=== PATIENT | male | born 1950 | race Caucasian/White ===

== ENCOUNTER 2017-11-29 09:16 | Emergency (ER) | payer MEDICARE, MEDICAID, OTHER ==
[2017-11-29 12:39] LABS: ADD MAN DIFF? NO
[2017-11-29 12:45] LABS: WHITE BLOOD COUNT 7.9 10^3/ul (4.8-10.8)
[2017-11-29 12:45] LABS: BASOPHILS % 0.5 % (0.0-2.0); EOSINOPHILS # 0.1 10^3/ul (0.0-0.5); EOSINOPHILS % 0.9 % (0.0-7.0); HEMOGLOBIN 12.7 g/dl (14.0-18.0); LYMPHOCYTES # 2.6 10^3/ul (0.8-2.9); LYMPHOCYTES % 32.8 % (15.0-51.0); MEAN CORPUSCULAR HGB CONC 34.3 g/dl (32.0-37.0); MEAN CORPUSCULAR VOLUME 101.9 fl (82.0-101.0); MEAN PLATELET VOLUME 11.9 fl (7.4-10.4); MONOCYTE # 0.7 10^3/ul (0.3-0.9); MONOCYTES % 9.1 % (0.0-11.0); NEUTROPHIL # 4.5 10^3/ul (1.6-7.5); NEUTROPHILS % 56.2 % (39.0-77.0); PLATELET COUNT 217 10^3/UL (140-415); RED BLOOD COUNT 3.63 10^6/ul (4.70-6.10); RED CELL DISTRIBUTION WIDTH 11.6 % (11.5-14.5)
[2017-11-29 13:02] LABS: ADD UMIC YES; UR ASCORBIC ACID NEGATIVE (NEGATIVE); UR BILIRUBIN (Dip) NEGATIVE (NEGATIVE); UR BLOOD (Dip) NEGATIVE (NEGATIVE); UR CLARITY CLEAR (CLEAR); UR COLOR YELLOW (YELLOW); UR GLUCOSE (Dip) 3+ mg/dL (NEGATIVE); UR KETONES (Dip) NEGATIVE (NEGATIVE); UR LEUKOCYTE ESTERASE (Dip) NEGATIVE Leu/ul (NEGATIVE); UR MUCUS FEW /HPF (NONE SEEN); UR NITRITE (Dip) NEGATIVE (NEGATIVE); UR RBC 1 /HPF (0-5); UR SPECIFIC GRAVITY (Dip) 1.029 (1.003-1.030); UR TOTAL PROTEIN (Dip) 1+ mg/dl (NEGATIVE); UR UROBILINOGEN (Dip) 1+ mg/dL (NEGATIVE); UR WBC 1 /HPF (0-5)
[2017-11-29 13:16] LABS: ANION GAP 16 (8-16); BLOOD UREA NITROGEN 12 mg/dl (7-20); CALCIUM 9.5 mg/dl (8.4-10.2); CARBON DIOXIDE 29 mmol/L (21-31); CHLORIDE 100 mmol/L (97-110); CREATININE 0.59 mg/dl (0.61-1.24); GLUCOSE 229 mg/dl (70-220); POTASSIUM 4.6 mmol/L (3.5-5.1); SODIUM 140 mmol/L (135-144)
== END 2017-11-29 15:05 | disposition home or self-care (01) ==
LOC: FTE 09:16
DX: E11.65 Type 2 diabetes mellitus with hyperglycemia (principal); Z95.1 Presence of aortocoronary bypass graft; Z87.891 Personal history of nicotine dependence; Z79.84 Long term (current) use of oral hypoglycemic drugs
CPT/HCPCS: 36415; 70450; 80048; 81001; 82962; 85025; 99284-25

== ENCOUNTER 2018-02-15 20:36 | Emergency (ER) | payer MEDICARE, OTHER, MEDICAID ==
[2018-02-16] MEDS: SOD CHLORIDE 0.9% 1,000 ML IV (00:47)
[2018-02-16 01:16] LABS: ADD MAN DIFF? NO
[2018-02-16 01:21] LABS: BASOPHILS % 0.3 % (0.0-2.0); HEMATOCRIT 42.8 % (42.0-52.0); HEMOGLOBIN 15.6 g/dl (14.0-18.0); MEAN CORPUSCULAR HEMOGLOBIN 34.9 pg (29.0-33.0); MEAN CORPUSCULAR HGB CONC 36.4 g/dl (32.0-37.0); MEAN CORPUSCULAR VOLUME 95.7 fl (82.0-101.0); MEAN PLATELET VOLUME 12.2 fl (7.4-10.4); MONOCYTE # 1.5 10^3/ul (0.3-0.9); MONOCYTES % 13.8 % (0.0-11.0); NEUTROPHIL # 8.3 10^3/ul (1.6-7.5); NEUTROPHILS % 76.4 % (39.0-77.0); PLATELET COUNT 114 10^3/UL (140-415); RED BLOOD COUNT 4.47 10^6/ul (4.70-6.10); RED CELL DISTRIBUTION WIDTH 11.7 % (11.5-14.5)
[2018-02-16 01:21] LABS: WHITE BLOOD COUNT 10.9 10^3/ul (4.8-10.8)
[2018-02-16 01:52] LABS: ALANINE AMINOTRANSFERASE 46 IU/L (13-69); ALBUMIN 4.1 g/dl (3.3-4.9); ALBUMIN/GLOBULIN RATIO 0.95; ALKALINE PHOSPHATASE 104 IU/L (42-121); ANION GAP 23 (8-16); ASPARTATE AMINO TRANSFERASE 65 IU/L (15-46); BILIRUBIN,INDIRECT 0.2 mg/dl (0-1.1); BILIRUBIN,TOTAL 0.2 mg/dl (0.2-1.3); BLOOD UREA NITROGEN 23 mg/dl (7-20); CALCIUM 9.3 mg/dl (8.4-10.2); CARBON DIOXIDE 25 mmol/L (21-31); CHLORIDE 85 mmol/L (97-110); CREATININE 0.79 mg/dl (0.61-1.24); POTASSIUM 4.5 mmol/L (3.5-5.1); SODIUM 128 mmol/L (135-144); TOTAL PROTEIN 8.4 g/dl (6.1-8.1)
[2018-02-16 01:59] LABS: GLUCOSE 481 mg/dl (70-220)
[2018-02-16 02:00] LABS: ADD UMIC YES; UR ASCORBIC ACID NEGATIVE (NEGATIVE); UR BILIRUBIN (Dip) NEGATIVE (NEGATIVE); UR BLOOD (Dip) 1+ mg/dL (NEGATIVE); UR CLARITY CLEAR (CLEAR); UR COLOR YELLOW (YELLOW); UR GLUCOSE (Dip) 3+ mg/dL (NEGATIVE); UR KETONES (Dip) 1+ mg/dL (NEGATIVE); UR LEUKOCYTE ESTERASE (Dip) NEGATIVE Leu/ul (NEGATIVE); UR NITRITE (Dip) NEGATIVE (NEGATIVE); UR RBC 1 /HPF (0-5); UR TOTAL PROTEIN (Dip) 2+ mg/dl (NEGATIVE); UR UROBILINOGEN (Dip) NEGATIVE (NEGATIVE); UR WBC 0 /HPF (0-5)
[2018-02-16 02:02] LABS: TROPONIN-I 0.022 ng/ml (0.00-0.12)
[2018-02-16 03:23] LABS: LACTIC ACID 1.6 mmol/L (0.5-2.0)
[2018-02-16] MEDS: INSULIN LISPRO 100 UNIT/ML VIAL SC (04:39)
== END 2018-02-16 06:34 | disposition home or self-care (01) ==
LOC: E/R 20:36
DX: E11.65 Type 2 diabetes mellitus with hyperglycemia (principal); F10.230 Alcohol dependence with withdrawal, uncomplicated; Z79.4 Long term (current) use of insulin; Z87.891 Personal history of nicotine dependence; Z95.1 Presence of aortocoronary bypass graft
CPT/HCPCS: 36415; 71045; 80053; 81001; 82962; 83605; 84484; 85025; 87040; 93005; 96372; 99285-25

== ENCOUNTER 2018-02-17 14:41 | Inpatient (IN) | payer MEDICARE, OTHER ==
[2018-02-17] MEDS: SODIUM CHLORIDE 0.9% 1L BAG IV* (17:29)
[2018-02-17] MEDS: CEFEPIME 2GM/50 ML (PMX) 50 ML IVPB (17:29)
[2018-02-17 17:33] LABS: ABNORMAL IP MESSAGE 1; HEMOGLOBIN 14.1 g/dl (14.0-18.0); MEAN CORPUSCULAR HEMOGLOBIN 34.6 pg (29.0-33.0); MEAN CORPUSCULAR HGB CONC 35.3 g/dl (32.0-37.0); MEAN PLATELET VOLUME 12.7 fl (7.4-10.4); PLATELET COUNT 132 10^3/UL (140-415); POSITIVE DIFF @See below; RED BLOOD COUNT 4.08 10^6/ul (4.70-6.10); RED CELL DISTRIBUTION WIDTH 11.9 % (11.5-14.5)
[2018-02-17 17:33] LABS: WHITE BLOOD COUNT 10.7 10^3/ul (4.8-10.8)
[2018-02-17 17:34] LABS: ADD MAN DIFF? YES
[2018-02-17 17:53] LABS: PARTIAL THROMBOPLASTIN TIME 27.4 Sec (25.0-35.0); PROTIME 14.4 Sec (11.9-14.9); PT RATIO 1.1
[2018-02-17 17:55] LABS: LACTIC ACID 4.2 mmol/L (0.5-2.0)
[2018-02-17 17:55] LABS: ALANINE AMINOTRANSFERASE 45 IU/L (13-69); ALBUMIN 3.8 g/dl (3.3-4.9); ALBUMIN/GLOBULIN RATIO 0.97; ALKALINE PHOSPHATASE 88 IU/L (42-121); ANION GAP 22 (8-16); ASPARTATE AMINO TRANSFERASE 52 IU/L (15-46); BILIRUBIN,INDIRECT 0.4 mg/dl (0-1.1); BILIRUBIN,TOTAL 0.4 mg/dl (0.2-1.3); BLOOD UREA NITROGEN 21 mg/dl (7-20); CALCIUM 9.2 mg/dl (8.4-10.2); CARBON DIOXIDE 25 mmol/L (21-31); CHLORIDE 86 mmol/L (97-110); CREATININE 0.77 mg/dl (0.61-1.24); POTASSIUM 4.3 mmol/L (3.5-5.1); SODIUM 129 mmol/L (135-144); TOTAL PROTEIN 7.7 g/dl (6.1-8.1)
[2018-02-17 18:05] LABS: TROPONIN-I < 0.012 ng/ml (0.00-0.12)
[2018-02-17 18:11] LABS: GLUCOSE 572 mg/dl (70-220)
[2018-02-17 18:24] LABS: ADD UMIC YES; UR ASCORBIC ACID NEGATIVE (NEGATIVE); UR BILIRUBIN (Dip) NEGATIVE (NEGATIVE); UR BLOOD (Dip) 1+ mg/dL (NEGATIVE); UR CLARITY CLEAR (CLEAR); UR COLOR YELLOW (YELLOW); UR GLUCOSE (Dip) 3+ mg/dL (NEGATIVE); UR KETONES (Dip) 1+ mg/dL (NEGATIVE); UR LEUKOCYTE ESTERASE (Dip) NEGATIVE Leu/ul (NEGATIVE); UR NITRITE (Dip) NEGATIVE (NEGATIVE); UR RBC 0 /HPF (0-5); UR TOTAL PROTEIN (Dip) 1+ mg/dl (NEGATIVE); UR UROBILINOGEN (Dip) NEGATIVE (NEGATIVE); UR WBC 0 /HPF (0-5)
[2018-02-17] MEDS: SOD CHLORIDE 0.9% 1,000 ML IV ×3 (18:30→20:49)
[2018-02-17 19:02] LABS: BAND NEUTROPHILS #M 1.6 10^3/ul (0.0-0.6); BAND NEUTROPHILS % (M) 15 % (0-4); GIANT THROMBO% (M) 1 % (0-0); LYMPHOCYTES % (M) 10 % (15-51); MONOCYTE #M 1.4 10^3/ul (0.3-0.9); MONOCYTES % (M) 14 % (0-11); PLATELET ESTIMATE NORMAL; SEG NEUT #M 6.7 10^3/ul (1.6-7.5); SEGMENTED NEUTROPHILS (M) % 61 % (39-77); SMUDGE%M 2 % (0-0)
[2018-02-17 19:36] LABS: LACTIC ACID 1.4 mmol/L (0.5-2.0)
[2018-02-17] MEDS ORDERED: ONDANSETRON 4 MG INJ IV (21:00)
[2018-02-17] MEDS ORDERED: morphine 2 MG INJ IV (21:00)
[2018-02-17] MEDS ORDERED: NACL 0.9% 3 ML SYG IV (21:00)
[2018-02-17] MEDS ORDERED: GLUCOSE GEL 15 GRAM TUBE BUCCAL (21:30)
[2018-02-17] MEDS ORDERED: DEXTROSE 50% 50 ML SYRINGE IV ×2 (21:30)
[2018-02-17] MEDS ORDERED: GLUCAGON 1 MG INJ IM (21:30)
[2018-02-17] MEDS ORDERED: GLUCOSE GEL 15 GRAM TUBE PO ×2 (21:30)
[2018-02-17] MEDS: hydrALAzine 20 MG INJ IV (22:11)
[2018-02-17 22:29] LABS: LACTIC ACID 1.9 mmol/L (0.5-2.0)
[2018-02-17] MEDS: INSULIN ASPART [NOVOLOG] 3 ML PEN SC (22:34)
[2018-02-17] MEDS: ACETAMINOPHEN 325 MG TAB PO (22:37)
[2018-02-18] MEDS: ACCU-CHEK XX (02:00)
[2018-02-18] MEDS: CEFEPIME 2GM/50 ML (PMX) 50 ML IVPB ×4 (02:39→21:20)
[2018-02-18 06:14] LABS: ADD MAN DIFF? NO
[2018-02-18 06:18] LABS: BASOPHILS % 0.2 % (0.0-2.0); EOSINOPHILS % 0.1 % (0.0-7.0); HEMATOCRIT 34.8 % (42.0-52.0); HEMOGLOBIN 12.8 g/dl (14.0-18.0); LYMPHOCYTES # 1.4 10^3/ul (0.8-2.9); LYMPHOCYTES % 13.1 % (15.0-51.0); MEAN CORPUSCULAR HEMOGLOBIN 35.3 pg (29.0-33.0); MEAN CORPUSCULAR HGB CONC 36.8 g/dl (32.0-37.0); MEAN CORPUSCULAR VOLUME 95.9 fl (82.0-101.0); MEAN PLATELET VOLUME 12.9 fl (7.4-10.4); MONOCYTE # 1.5 10^3/ul (0.3-0.9); MONOCYTES % 13.8 % (0.0-11.0); NEUTROPHIL # 7.7 10^3/ul (1.6-7.5); NEUTROPHILS % 72.3 % (39.0-77.0); PLATELET COUNT 126 10^3/UL (140-415); RED BLOOD COUNT 3.63 10^6/ul (4.70-6.10); RED CELL DISTRIBUTION WIDTH 11.7 % (11.5-14.5)
[2018-02-18 06:18] LABS: WHITE BLOOD COUNT 10.7 10^3/ul (4.8-10.8)
[2018-02-18 06:28] LABS: HEMOGLOBIN A1C 10.1 % (0-5.9)
[2018-02-18] MEDS: SOD CHLORIDE 0.9% 1,000 ML IV ×2 (06:49→16:20)
[2018-02-18 06:52] LABS: ALANINE AMINOTRANSFERASE 41 IU/L (13-69); ALBUMIN 2.8 g/dl (3.3-4.9); ALBUMIN/GLOBULIN RATIO 0.82; ALKALINE PHOSPHATASE 68 IU/L (42-121); ANION GAP 15 (8-16); ASPARTATE AMINO TRANSFERASE 45 IU/L (15-46); BILIRUBIN,INDIRECT 0.3 mg/dl (0-1.1); BILIRUBIN,TOTAL 0.3 mg/dl (0.2-1.3); BLOOD UREA NITROGEN 13 mg/dl (7-20); CALCIUM 8.1 mg/dl (8.4-10.2); CARBON DIOXIDE 25 mmol/L (21-31); CHLORIDE 99 mmol/L (97-110); CHOL/HDL RATIO 10.1 RATIO; CHOLESTEROL 152 mg/dl (100-200); CREATININE 0.54 mg/dl (0.61-1.24); GLUCOSE 262 mg/dl (70-220); HDL CHOLESTEROL 15 mg/dl (30-78); LDL CHOLESTEROL,CALCULATED 103 mg/dl; MAGNESIUM 1.5 mg/dl (1.7-2.5); POTASSIUM 3.3 mmol/L (3.5-5.1); SODIUM 136 mmol/L (135-144); TOTAL PROTEIN 6.2 g/dl (6.1-8.1); TRIGLYCERIDES 171 mg/dl (0-149)
[2018-02-18 07:02] LABS: FREE THYROXINE INDEX (Calc) 3.05 ug/ml (0.65-3.89); T3 UPTAKE 53.5 % (23.5-40.5); T4 (THYROXINE) 5.7 ug/dl (5.5-11.0)
[2018-02-18] MEDS: POTASSIUM CHLORIDE (SR) 20 MEQ TAB PO ×2 (07:51→10:39)
[2018-02-18] MEDS: INSULIN ASPART [NOVOLOG] 3 ML PEN SC ×4 (08:27→21:24)
[2018-02-18] MEDS: ACETAMINOPHEN 325 MG TAB PO (08:44)
[2018-02-18 10:10] LABS: ETHANOL < 10.0 mg/dl
[2018-02-18 11:13] LABS: FOLATE 11.6 ng/ml (2.8-20.0)
[2018-02-18] MEDS: MAGNESIUM SULFATE 2 GM/50 ML 50 ML IVPB (11:24)
[2018-02-18] MEDS: INSULIN GLARGINE [LANtus] 3 ML PEN SC (21:23)
[2018-02-19] MEDS ORDERED: ACCU-CHEK XX (02:00)
[2018-02-19] MEDS: ACCU-CHEK XX (02:00)
[2018-02-19] MEDS: INSULIN ASPART [NOVOLOG] 3 ML PEN SC ×5 (03:20→21:09)
[2018-02-19] MEDS: CEFEPIME 2GM/50 ML (PMX) 50 ML IVPB ×2 (03:47→15:39)
[2018-02-19 06:14] LABS: ANION GAP 15 (8-16)
[2018-02-19 06:15] LABS: BLOOD UREA NITROGEN 7 mg/dl (7-20); CALCIUM 8.5 mg/dl (8.4-10.2); CARBON DIOXIDE 28 mmol/L (21-31); CHLORIDE 95 mmol/L (97-110); CREATININE 0.57 mg/dl (0.61-1.24); GLUCOSE 229 mg/dl (70-220); POTASSIUM 3.5 mmol/L (3.5-5.1); SODIUM 134 mmol/L (135-144)
[2018-02-19 06:42] LABS: ADD MAN DIFF? NO
[2018-02-19] MEDS: CEFAZOLIN 1 GM/50 ML (PMX) 50 ML IVPB ×2 (08:26→13:30)
[2018-02-19] MEDS: AMLODIPINE 5 MG TAB PO (08:27)
[2018-02-19 09:55] LABS: HEMATOCRIT 34.9 % (42.0-52.0); HEMOGLOBIN 12.6 g/dl (14.0-18.0); MEAN CORPUSCULAR HEMOGLOBIN 34.4 pg (29.0-33.0); MEAN CORPUSCULAR HGB CONC 36.1 g/dl (32.0-37.0); MEAN CORPUSCULAR VOLUME 95.4 fl (82.0-101.0); RED BLOOD COUNT 3.66 10^6/ul (4.70-6.10); RED CELL DISTRIBUTION WIDTH 11.6 % (11.5-14.5)
[2018-02-19 09:55] LABS: WHITE BLOOD COUNT 10.9 10^3/ul (4.8-10.8)
[2018-02-19 09:56] LABS: MEAN PLATELET VOLUME 12.3 fl (7.4-10.4); PLATELET COUNT 158 10^3/UL (140-415)
[2018-02-19 09:59] LABS: EOSINOPHILS % 0.1 % (0.0-7.0); LYMPHOCYTES % 13.2 % (15.0-51.0); MONOCYTES % 15.5 % (0.0-11.0); NEUTROPHILS % 70.3 % (39.0-77.0)
[2018-02-19 10:00] LABS: BASOPHILS % 0.3 % (0.0-2.0)
[2018-02-19 10:15] LABS: ADD MAN DIFF? NO
[2018-02-19 10:21] LABS: WHITE BLOOD COUNT 11.8 10^3/ul (4.8-10.8)
[2018-02-19 10:21] LABS: ABNORMAL IP MESSAGE 1; BASOPHILS % 0.3 % (0.0-2.0); HEMATOCRIT 35.8 % (42.0-52.0); HEMOGLOBIN 12.7 g/dl (14.0-18.0); LYMPHOCYTES # 0.9 10^3/ul (0.8-2.9); LYMPHOCYTES % 7.7 % (15.0-51.0); MEAN CORPUSCULAR HEMOGLOBIN 34.3 pg (29.0-33.0); MEAN CORPUSCULAR HGB CONC 35.5 g/dl (32.0-37.0); MEAN CORPUSCULAR VOLUME 96.8 fl (82.0-101.0); MEAN PLATELET VOLUME 12.2 fl (7.4-10.4); MONOCYTE # 1.8 10^3/ul (0.3-0.9); NEUTROPHILS % 76.2 % (39.0-77.0); PLATELET COUNT 170 10^3/UL (140-415); POSITIVE DIFF @See below; RED CELL DISTRIBUTION WIDTH 11.8 % (11.5-14.5)
[2018-02-19] MEDS: SOD CHLORIDE 0.9% 1,000 ML IV (10:25)
[2018-02-19] MEDS: ACETAMINOPHEN 325 MG TAB PO (13:30)
[2018-02-19] MEDS: METOPROLOL (XL) 25 MG TAB PO (14:00)
[2018-02-19] MEDS ORDERED: CEFOTAXIME 2 GM/50 ML (PMX) 50 ML IVPB ×2 (18:00)
[2018-02-19] MEDS ORDERED: CEFOTAXIME IVPB (20:00)
[2018-02-19] MEDS ORDERED: DEXTROSE 5% IVPB (20:00)
[2018-02-19] MEDS: CEFOTAXIME IVPB (20:17)
[2018-02-19] MEDS: DEXTROSE 5% IVPB (20:17)
[2018-02-19] MEDS: INSULIN GLARGINE [LANtus] 3 ML PEN SC (20:22)
[2018-02-20] MEDS: ACCU-CHEK XX (02:00)
[2018-02-20] MEDS: SOD CHLORIDE 0.9% 1,000 ML IV ×3 (04:40→11:03)
[2018-02-20 05:34] LABS: ADD MAN DIFF? NO
[2018-02-20] MEDS: CEFOTAXIME IVPB ×3 (05:53→22:00)
[2018-02-20] MEDS: DEXTROSE 5% IVPB ×3 (05:53→22:00)
[2018-02-20 05:55] LABS: INR 1.11; PROTIME 14.5 Sec (11.9-14.9); PT RATIO 1.1
[2018-02-20 06:02] LABS: ANION GAP 14 (8-16); BLOOD UREA NITROGEN 7 mg/dl (7-20); CALCIUM 8.4 mg/dl (8.4-10.2); CARBON DIOXIDE 26 mmol/L (21-31); CHLORIDE 95 mmol/L (97-110); CREATININE 0.46 mg/dl (0.61-1.24); GLUCOSE 212 mg/dl (70-220); POTASSIUM 3.4 mmol/L (3.5-5.1); SODIUM 132 mmol/L (135-144)
[2018-02-20 06:27] LABS: HEPATITIS B SURFACE ANTIGEN NEGATIVE (NEGATIVE)
[2018-02-20 06:44] LABS: ALPHA FETOPROTEIN 1.06 IU/L (0.00-7.21)
[2018-02-20 06:45] LABS: HEPATITIS B CORE ANTIBODY NEGATIVE (NEGATIVE); HEPATITIS C VIRAL ANTIBODY NEGATIVE (NEGATIVE)
[2018-02-20 06:56] LABS: ABNORMAL IP MESSAGE 1; BASOPHILS % 0.4 % (0.0-2.0); EOSINOPHILS % 0.1 % (0.0-7.0); HEMATOCRIT 35.5 % (42.0-52.0); HEMOGLOBIN 12.8 g/dl (14.0-18.0); LYMPHOCYTES # 1.2 10^3/ul (0.8-2.9); LYMPHOCYTES % 10.4 % (15.0-51.0); MEAN CORPUSCULAR HGB CONC 36.1 g/dl (32.0-37.0); MEAN PLATELET VOLUME 12.3 fl (7.4-10.4); MONOCYTE # 1.6 10^3/ul (0.3-0.9); MONOCYTES % 14.5 % (0.0-11.0); NEUTROPHIL # 8.3 10^3/ul (1.6-7.5); NEUTROPHILS % 73.8 % (39.0-77.0); PLATELET COUNT 191 10^3/UL (140-415); POSITIVE DIFF @See below; RED BLOOD COUNT 3.66 10^6/ul (4.70-6.10); RED CELL DISTRIBUTION WIDTH 11.7 % (11.5-14.5)
[2018-02-20 06:56] LABS: WHITE BLOOD COUNT 11.2 10^3/ul (4.8-10.8)
[2018-02-20] MEDS: INSULIN ASPART [NOVOLOG] 3 ML PEN SC ×4 (08:19→21:16)
[2018-02-20] MEDS: LISINOPRIL 5 MG TAB PO (08:40)
[2018-02-20] MEDS: METOPROLOL (XL) 25 MG TAB PO (08:40)
[2018-02-20] MEDS: AMLODIPINE 5 MG TAB PO (08:40)
[2018-02-20] MEDS: ASPIRIN (EC) 81 MG TAB PO (08:40)
[2018-02-20 08:56] LABS: ERYTHROCYTE SEDIMENTATION RATE 96 mm/Hr (0-20)
[2018-02-20 09:00] LABS: HEPATITIS B SURFACE ANTIBODY POSITIVE (NEGATIVE)
[2018-02-20] MEDS: POTASSIUM CHLORIDE (SR) 20 MEQ TAB PO ×2 (11:48→20:50)
[2018-02-20] MEDS: INSULIN GLARGINE [LANtus] 3 ML PEN SC (20:24)
[2018-02-21] MEDS: ACCU-CHEK XX (02:00)
[2018-02-21] MEDS: DEXTROSE 5% IVPB ×3 (05:33→22:39)
[2018-02-21] MEDS: CEFOTAXIME IVPB ×3 (05:33→22:39)
[2018-02-21] MEDS: SOD CHLORIDE 0.9% 1,000 ML IV ×2 (05:38→14:00)
[2018-02-21 06:21] LABS: ADD MAN DIFF? NO
[2018-02-21 06:43] LABS: ABNORMAL IP MESSAGE 1; ANION GAP 13 (8-16); BASOPHIL # 0.1 10^3/ul (0.0-0.1); BASOPHILS % 0.5 % (0.0-2.0); BLOOD UREA NITROGEN 8 mg/dl (7-20); CALCIUM 8.5 mg/dl (8.4-10.2); CARBON DIOXIDE 29 mmol/L (21-31); CHLORIDE 96 mmol/L (97-110); CREATININE 0.58 mg/dl (0.61-1.24); EOSINOPHILS % 0.2 % (0.0-7.0); GLUCOSE 224 mg/dl (70-220); HEMATOCRIT 35.6 % (42.0-52.0); HEMOGLOBIN 12.7 g/dl (14.0-18.0); LYMPHOCYTES # 1.5 10^3/ul (0.8-2.9); LYMPHOCYTES % 14.1 % (15.0-51.0); MEAN CORPUSCULAR HEMOGLOBIN 34.9 pg (29.0-33.0); MEAN CORPUSCULAR HGB CONC 35.7 g/dl (32.0-37.0); MEAN CORPUSCULAR VOLUME 97.8 fl (82.0-101.0); MEAN PLATELET VOLUME 11.7 fl (7.4-10.4); MONOCYTE # 1.7 10^3/ul (0.3-0.9); MONOCYTES % 15.5 % (0.0-11.0); NEUTROPHIL # 7.5 10^3/ul (1.6-7.5); NEUTROPHILS % 68.1 % (39.0-77.0); PLATELET COUNT 232 10^3/UL (140-415); POSITIVE DIFF @See below; POTASSIUM 3.8 mmol/L (3.5-5.1); RED BLOOD COUNT 3.64 10^6/ul (4.70-6.10); RED CELL DISTRIBUTION WIDTH 11.9 % (11.5-14.5); SODIUM 134 mmol/L (135-144)
[2018-02-21] MEDS: INSULIN ASPART [NOVOLOG] 3 ML PEN SC ×5 (07:58→21:21)
[2018-02-21] MEDS: ASPIRIN (EC) 81 MG TAB PO (08:17)
[2018-02-21] MEDS: POTASSIUM CHLORIDE (SR) 20 MEQ TAB PO ×2 (08:17→21:23)
[2018-02-21] MEDS: LISINOPRIL 5 MG TAB PO (08:18)
[2018-02-21] MEDS: METOPROLOL (XL) 25 MG TAB PO (08:18)
[2018-02-21] MEDS: AMLODIPINE 5 MG TAB PO (08:19)
[2018-02-21] MEDS: SOD CHLORIDE 0.9% 100 ML (20:58)
[2018-02-21] MEDS: IODIXANOL LOCM 100 ML BTL (20:59)
[2018-02-21] MEDS: INSULIN GLARGINE [LANtus] 3 ML PEN SC (21:22)
[2018-02-22] MEDS: ACCU-CHEK XX (02:00)
[2018-02-22] MEDS: DEXTROSE 5% IVPB ×3 (05:29→22:44)
[2018-02-22] MEDS: CEFOTAXIME IVPB ×3 (05:29→22:44)
[2018-02-22] MEDS: SOD CHLORIDE 0.9% 1,000 ML IV ×3 (06:00→23:20)
[2018-02-22 06:25] LABS: ADD MAN DIFF? NO
[2018-02-22 06:29] LABS: WHITE BLOOD COUNT 9.1 10^3/ul (4.8-10.8)
[2018-02-22 06:29] LABS: BASOPHILS % 0.4 % (0.0-2.0); EOSINOPHILS # 0.1 10^3/ul (0.0-0.5); EOSINOPHILS % 1.2 % (0.0-7.0); HEMATOCRIT 34.2 % (42.0-52.0); HEMOGLOBIN 12.1 g/dl (14.0-18.0); LYMPHOCYTES # 1.4 10^3/ul (0.8-2.9); LYMPHOCYTES % 15.5 % (15.0-51.0); MEAN CORPUSCULAR HEMOGLOBIN 34.7 pg (29.0-33.0); MEAN CORPUSCULAR HGB CONC 35.4 g/dl (32.0-37.0); MEAN PLATELET VOLUME 11.4 fl (7.4-10.4); MONOCYTE # 1.3 10^3/ul (0.3-0.9); MONOCYTES % 14.8 % (0.0-11.0); NEUTROPHILS % 66.7 % (39.0-77.0); PLATELET COUNT 245 10^3/UL (140-415); RED BLOOD COUNT 3.49 10^6/ul (4.70-6.10); RED CELL DISTRIBUTION WIDTH 12.1 % (11.5-14.5)
[2018-02-22 06:52] LABS: ANION GAP 11 (8-16); BLOOD UREA NITROGEN 7 mg/dl (7-20); CALCIUM 8.2 mg/dl (8.4-10.2); CARBON DIOXIDE 31 mmol/L (21-31); CHLORIDE 97 mmol/L (97-110); CREATININE 0.68 mg/dl (0.61-1.24); GLUCOSE 183 mg/dl (70-220); POTASSIUM 3.9 mmol/L (3.5-5.1); SODIUM 135 mmol/L (135-144)
[2018-02-22] MEDS: INSULIN ASPART [NOVOLOG] 3 ML PEN SC ×7 (08:09→21:00)
[2018-02-22] MEDS: AMLODIPINE 5 MG TAB PO (09:02)
[2018-02-22] MEDS: POTASSIUM CHLORIDE (SR) 20 MEQ TAB PO ×2 (09:02→21:31)
[2018-02-22] MEDS: ASPIRIN (EC) 81 MG TAB PO (09:02)
[2018-02-22] MEDS: METOPROLOL (XL) 25 MG TAB PO (09:03)
[2018-02-22] MEDS: LISINOPRIL 5 MG TAB PO (09:03)
[2018-02-22 13:44] LABS: AMPHETAMINE/METHAMPHETAMINE NEGATIVE (NEGATIVE); BARBITURATES NEGATIVE (NEGATIVE); BENZODIAZEPINES NEGATIVE (NEGATIVE); COCAINE NEGATIVE (NEGATIVE); OPIATES NEGATIVE (NEGATIVE)
[2018-02-22 14:15] LABS: CANNABINOIDS NEGATIVE (NEGATIVE)
[2018-02-22] MEDS: INSULIN GLARGINE [LANtus] 3 ML PEN SC (21:30)
[2018-02-23] MEDS: ACCU-CHEK XX (01:55)
[2018-02-23] MEDS: INSULIN ASPART [NOVOLOG] 3 ML PEN SC ×8 (05:05→21:00)
[2018-02-23] MEDS: SOD CHLORIDE 0.9% 1,000 ML IV (05:32)
[2018-02-23] MEDS: DEXTROSE 5% IVPB ×3 (06:11→23:08)
[2018-02-23] MEDS: CEFOTAXIME IVPB ×3 (06:11→23:08)
[2018-02-23 08:08] LABS: ADD MAN DIFF? NO
[2018-02-23 08:13] LABS: BASOPHILS % 0.5 % (0.0-2.0); EOSINOPHILS # 0.1 10^3/ul (0.0-0.5); EOSINOPHILS % 1.2 % (0.0-7.0); HEMATOCRIT 35.3 % (42.0-52.0); HEMOGLOBIN 12.2 g/dl (14.0-18.0); LYMPHOCYTES # 1.2 10^3/ul (0.8-2.9); LYMPHOCYTES % 14.4 % (15.0-51.0); MEAN CORPUSCULAR HEMOGLOBIN 34.3 pg (29.0-33.0); MEAN CORPUSCULAR HGB CONC 34.6 g/dl (32.0-37.0); MEAN CORPUSCULAR VOLUME 99.2 fl (82.0-101.0); MEAN PLATELET VOLUME 11.8 fl (7.4-10.4); MONOCYTE # 1.1 10^3/ul (0.3-0.9); MONOCYTES % 12.4 % (0.0-11.0); PLATELET COUNT 272 10^3/UL (140-415); RED BLOOD COUNT 3.56 10^6/ul (4.70-6.10); RED CELL DISTRIBUTION WIDTH 11.8 % (11.5-14.5)
[2018-02-23 08:13] LABS: WHITE BLOOD COUNT 8.6 10^3/ul (4.8-10.8)
[2018-02-23 08:52] LABS: ANION GAP 13 (8-16); BLOOD UREA NITROGEN 5 mg/dl (7-20); CALCIUM 8.5 mg/dl (8.4-10.2); CARBON DIOXIDE 27 mmol/L (21-31); CHLORIDE 99 mmol/L (97-110); CREATININE 0.52 mg/dl (0.61-1.24); GLUCOSE 176 mg/dl (70-220); POTASSIUM 3.8 mmol/L (3.5-5.1); SODIUM 135 mmol/L (135-144)
[2018-02-23] MEDS: ASPIRIN (EC) 81 MG TAB PO (09:00)
[2018-02-23] MEDS: POTASSIUM CHLORIDE (SR) 20 MEQ TAB PO ×2 (09:21→21:26)
[2018-02-23] MEDS: LISINOPRIL 5 MG TAB PO (09:21)
[2018-02-23] MEDS: METOPROLOL (XL) 25 MG TAB PO (09:22)
[2018-02-23] MEDS: AMLODIPINE 5 MG TAB PO (09:22)
[2018-02-23] MEDS ORDERED: MIDAZOLAM 1 MG/ML 2 ML INJ ×2 (10:27)
[2018-02-23] MEDS ORDERED: LIDOCAINE 1% (MDV) 10 ML INJ (10:46)
[2018-02-23] MEDS ORDERED: DIPHENHYDRAMINE 50 MG INJ IV (12:30)
[2018-02-23] MEDS ORDERED: EPHEDrine SULFATE 50 MG/5 ML SYG IV (12:30)
[2018-02-23] MEDS ORDERED: hydrALAzine 20 MG INJ IV (12:30)
[2018-02-23] MEDS ORDERED: MEPERIDINE 25 MG INJ IV (12:30)
[2018-02-23] MEDS ORDERED: ONDANSETRON 4 MG INJ IV (12:30)
[2018-02-23] MEDS ORDERED: FENTAnyl 50 MCG/ML VIAL IV ×3 (12:30)
[2018-02-23] MEDS ORDERED: OXYCODONE/ACETAMINOPHEN (5/325) TAB PO (12:30)
[2018-02-23] MEDS ORDERED: INSULIN ASPART [NOVOLOG] 3 ML PEN SC (12:30)
[2018-02-23] MEDS ORDERED: LABETALOL HCL 20MG INJ IV (12:30)
[2018-02-23] MEDS: ACETAMINOPHEN 325 MG TAB PO (13:29)
[2018-02-23 15:01] LABS: CREATININE, RANDOM URINE 73 mg/dL (20-370); MICROALBUMIN/CREATININE RATIO 164 (<30)
[2018-02-23] MEDS: INSULIN GLARGINE [LANtus] 3 ML PEN SC (21:28)
[2018-02-24] MEDS: ACETAMINOPHEN 325 MG TAB PO ×2 (01:41→15:37)
[2018-02-24] MEDS: ACCU-CHEK XX (01:51)
[2018-02-24] MEDS: SOD CHLORIDE 0.9% 1,000 ML IV (04:47)
[2018-02-24] MEDS: DEXTROSE 5% IVPB ×3 (06:30→20:42)
[2018-02-24] MEDS: CEFOTAXIME IVPB ×3 (06:30→20:42)
[2018-02-24 06:34] LABS: ADD MAN DIFF? NO
[2018-02-24 06:45] LABS: BASOPHIL # 0.1 10^3/ul (0.0-0.1); BASOPHILS % 0.3 % (0.0-2.0); EOSINOPHILS % 0.2 % (0.0-7.0); HEMATOCRIT 28.8 % (42.0-52.0); HEMOGLOBIN 9.9 g/dl (14.0-18.0); LYMPHOCYTES % 4.8 % (15.0-51.0); MEAN CORPUSCULAR HEMOGLOBIN 34.4 pg (29.0-33.0); MEAN CORPUSCULAR HGB CONC 34.4 g/dl (32.0-37.0); MEAN PLATELET VOLUME 11.5 fl (7.4-10.4); MONOCYTES % 4.6 % (0.0-11.0); NEUTROPHIL # 18.9 10^3/ul (1.6-7.5); NEUTROPHILS % 89.4 % (39.0-77.0); PLATELET COUNT 225 10^3/UL (140-415); RED BLOOD COUNT 2.88 10^6/ul (4.70-6.10)
[2018-02-24 06:45] LABS: WHITE BLOOD COUNT 21.1 10^3/ul (4.8-10.8)
[2018-02-24 07:20] LABS: ANION GAP 11 (8-16); BLOOD UREA NITROGEN 8 mg/dl (7-20); CALCIUM 7.4 mg/dl (8.4-10.2); CARBON DIOXIDE 26 mmol/L (21-31); CHLORIDE 102 mmol/L (97-110); CREATININE 0.61 mg/dl (0.61-1.24); GLUCOSE 127 mg/dl (70-220); POTASSIUM 3.4 mmol/L (3.5-5.1); SODIUM 136 mmol/L (135-144)
[2018-02-24] MEDS: INSULIN ASPART [NOVOLOG] 3 ML PEN SC ×7 (08:00→20:39)
[2018-02-24] MEDS: AMLODIPINE 5 MG TAB PO (08:52)
[2018-02-24] MEDS: POTASSIUM CHLORIDE (SR) 20 MEQ TAB PO ×3 (08:53→20:39)
[2018-02-24] MEDS: METOPROLOL (XL) 25 MG TAB PO (08:53)
[2018-02-24] MEDS: ASPIRIN (EC) 81 MG TAB PO (08:53)
[2018-02-24] MEDS: LISINOPRIL 5 MG TAB PO (08:53)
[2018-02-24 17:54] LABS: HEMOGLOBIN 10.8 g/dl (14.0-18.0)
[2018-02-24] MEDS: INSULIN GLARGINE [LANtus] 3 ML PEN SC (20:41)
[2018-02-25] MEDS: ACCU-CHEK XX (02:00)
[2018-02-25] MEDS: ACETAMINOPHEN 325 MG TAB PO ×2 (02:04→09:38)
[2018-02-25] MEDS: SOD CHLORIDE 0.9% 1,000 ML IV ×2 (02:05→18:00)
[2018-02-25] MEDS: DEXTROSE 5% IVPB ×3 (05:05→23:19)
[2018-02-25] MEDS: CEFOTAXIME IVPB ×3 (05:05→23:19)
[2018-02-25 05:40] LABS: ADD MAN DIFF? NO
[2018-02-25 06:07] LABS: WHITE BLOOD COUNT 16.2 10^3/ul (4.8-10.8)
[2018-02-25 06:07] LABS: BASOPHIL # 0.1 10^3/ul (0.0-0.1); BASOPHILS % 0.4 % (0.0-2.0); EOSINOPHILS # 0.1 10^3/ul (0.0-0.5); EOSINOPHILS % 0.5 % (0.0-7.0); HEMOGLOBIN 11.3 g/dl (14.0-18.0); LYMPHOCYTES # 1.1 10^3/ul (0.8-2.9); LYMPHOCYTES % 6.8 % (15.0-51.0); MEAN CORPUSCULAR HEMOGLOBIN 34.3 pg (29.0-33.0); MEAN CORPUSCULAR HGB CONC 34.2 g/dl (32.0-37.0); MEAN CORPUSCULAR VOLUME 100.3 fl (82.0-101.0); MEAN PLATELET VOLUME 11.9 fl (7.4-10.4); MONOCYTE # 1.3 10^3/ul (0.3-0.9); NEUTROPHIL # 13.5 10^3/ul (1.6-7.5); NEUTROPHILS % 83.6 % (39.0-77.0); PLATELET COUNT 266 10^3/UL (140-415); RED BLOOD COUNT 3.29 10^6/ul (4.70-6.10); RED CELL DISTRIBUTION WIDTH 11.9 % (11.5-14.5)
[2018-02-25 06:15] LABS: ANION GAP 13 (8-16); BLOOD UREA NITROGEN 6 mg/dl (7-20); CALCIUM 8.4 mg/dl (8.4-10.2); CARBON DIOXIDE 28 mmol/L (21-31); CHLORIDE 100 mmol/L (97-110); GLUCOSE 137 mg/dl (70-220); POTASSIUM 4.5 mmol/L (3.5-5.1); SODIUM 136 mmol/L (135-144)
[2018-02-25] MEDS: INSULIN ASPART [NOVOLOG] 3 ML PEN SC ×7 (08:00→20:30)
[2018-02-25] MEDS: ASPIRIN (EC) 81 MG TAB PO (08:40)
[2018-02-25] MEDS: POTASSIUM CHLORIDE (SR) 20 MEQ TAB PO ×2 (08:40→20:38)
[2018-02-25] MEDS: AMLODIPINE 5 MG TAB PO (09:00)
[2018-02-25] MEDS: LISINOPRIL 5 MG TAB PO (09:49)
[2018-02-25] MEDS: METOPROLOL (XL) 25 MG TAB PO (09:50)
[2018-02-25] MEDS: INSULIN GLARGINE [LANtus] 3 ML PEN SC (20:38)
[2018-02-26] MEDS: ZOLPIDEM 5 MG TAB PO ×2 (00:52→23:17)
[2018-02-26] MEDS: ACCU-CHEK XX (02:00)
[2018-02-26] MEDS: SOD CHLORIDE 0.9% 1,000 ML IV ×2 (02:46→10:40)
[2018-02-26 06:24] LABS: ADD MAN DIFF? NO
[2018-02-26] MEDS: DEXTROSE 5% IVPB ×3 (06:27→23:19)
[2018-02-26] MEDS: CEFOTAXIME IVPB ×3 (06:27→23:19)
[2018-02-26 06:37] LABS: WHITE BLOOD COUNT 11.4 10^3/ul (4.8-10.8)
[2018-02-26 06:37] LABS: BASOPHILS % 0.2 % (0.0-2.0); EOSINOPHILS # 0.1 10^3/ul (0.0-0.5); EOSINOPHILS % 0.6 % (0.0-7.0); HEMATOCRIT 36.7 % (42.0-52.0); HEMOGLOBIN 12.7 g/dl (14.0-18.0); LYMPHOCYTES # 1.5 10^3/ul (0.8-2.9); LYMPHOCYTES % 12.8 % (15.0-51.0); MEAN CORPUSCULAR HEMOGLOBIN 34.9 pg (29.0-33.0); MEAN CORPUSCULAR HGB CONC 34.6 g/dl (32.0-37.0); MEAN CORPUSCULAR VOLUME 100.8 fl (82.0-101.0); MEAN PLATELET VOLUME 11.9 fl (7.4-10.4); MONOCYTE # 0.6 10^3/ul (0.3-0.9); NEUTROPHIL # 9.2 10^3/ul (1.6-7.5); NEUTROPHILS % 80.9 % (39.0-77.0); PLATELET COUNT 319 10^3/UL (140-415); RED BLOOD COUNT 3.64 10^6/ul (4.70-6.10); RED CELL DISTRIBUTION WIDTH 11.9 % (11.5-14.5)
[2018-02-26 07:00] LABS: ALANINE AMINOTRANSFERASE 74 IU/L (13-69); ALBUMIN 2.8 g/dl (3.3-4.9); ALBUMIN/GLOBULIN RATIO 0.66; ALKALINE PHOSPHATASE 152 IU/L (42-121); ANION GAP 12 (8-16); ASPARTATE AMINO TRANSFERASE 69 IU/L (15-46); BLOOD UREA NITROGEN 6 mg/dl (7-20); CALCIUM 8.8 mg/dl (8.4-10.2); CARBON DIOXIDE 31 mmol/L (21-31); CHLORIDE 102 mmol/L (97-110); CREATININE 0.58 mg/dl (0.61-1.24); GLUCOSE 171 mg/dl (70-220); POTASSIUM 4.6 mmol/L (3.5-5.1); SODIUM 140 mmol/L (135-144)
[2018-02-26] MEDS: INSULIN ASPART [NOVOLOG] 3 ML PEN SC ×8 (08:00→21:00)
[2018-02-26] MEDS: LISINOPRIL 5 MG TAB PO (08:17)
[2018-02-26] MEDS: METOPROLOL (XL) 25 MG TAB PO (08:17)
[2018-02-26] MEDS: POTASSIUM CHLORIDE (SR) 20 MEQ TAB PO ×2 (08:17→21:05)
[2018-02-26] MEDS: ASPIRIN (EC) 81 MG TAB PO (08:17)
[2018-02-26] MEDS: LEVOFLOXACIN 500 MG TAB PO (21:05)
[2018-02-26] MEDS: INSULIN GLARGINE [LANtus] 3 ML PEN SC (21:05)
[2018-02-26] MEDS: ATORVASTATIN 20 MG TAB PO (21:06)
[2018-02-27] MEDS: ACCU-CHEK XX (02:00)
[2018-02-27] MEDS: SOD CHLORIDE 0.9% 1,000 ML IV ×2 (02:25→20:03)
[2018-02-27] MEDS: CEFOTAXIME IVPB ×3 (05:51→21:40)
[2018-02-27] MEDS: LEVOFLOXACIN 500 MG TAB PO (05:51)
[2018-02-27] MEDS: DEXTROSE 5% IVPB ×3 (05:51→21:40)
[2018-02-27 06:03] LABS: ADD MAN DIFF? NO
[2018-02-27 06:05] LABS: BASOPHILS % 0.6 % (0.0-2.0); EOSINOPHILS # 0.1 10^3/ul (0.0-0.5); HEMATOCRIT 35.9 % (42.0-52.0); HEMOGLOBIN 12.4 g/dl (14.0-18.0); LYMPHOCYTES # 1.4 10^3/ul (0.8-2.9); LYMPHOCYTES % 20.7 % (15.0-51.0); MEAN CORPUSCULAR HEMOGLOBIN 34.4 pg (29.0-33.0); MEAN CORPUSCULAR HGB CONC 34.5 g/dl (32.0-37.0); MEAN CORPUSCULAR VOLUME 99.7 fl (82.0-101.0); MEAN PLATELET VOLUME 12.4 fl (7.4-10.4); MONOCYTE # 0.5 10^3/ul (0.3-0.9); MONOCYTES % 7.4 % (0.0-11.0); NEUTROPHIL # 4.7 10^3/ul (1.6-7.5); NEUTROPHILS % 69.7 % (39.0-77.0); POSITIVE DIFF @See below
[2018-02-27 06:05] LABS: WHITE BLOOD COUNT 6.8 10^3/ul (4.8-10.8)
[2018-02-27 06:18] LABS: ALANINE AMINOTRANSFERASE 67 IU/L (13-69); ALBUMIN 3.1 g/dl (3.3-4.9); ALKALINE PHOSPHATASE 152 IU/L (42-121); ANION GAP 14 (8-16); ASPARTATE AMINO TRANSFERASE 68 IU/L (15-46); BILIRUBIN,INDIRECT 0.1 mg/dl (0-1.1); BILIRUBIN,TOTAL 0.1 mg/dl (0.2-1.3); BLOOD UREA NITROGEN 10 mg/dl (7-20); C-REACTIVE PROTEIN 4.6 mg/dl (0.0-0.9); CALCIUM 8.8 mg/dl (8.4-10.2); CARBON DIOXIDE 29 mmol/L (21-31); CHLORIDE 100 mmol/L (97-110); CREATININE 0.59 mg/dl (0.61-1.24); GLUCOSE 172 mg/dl (70-220); PLATELET COUNT 237 10^3/UL (140-415); POTASSIUM 4.7 mmol/L (3.5-5.1); SODIUM 138 mmol/L (135-144); TOTAL PROTEIN 7.5 g/dl (6.1-8.1)
[2018-02-27 07:14] LABS: ERYTHROCYTE SEDIMENTATION RATE 100 mm/Hr (0-20)
[2018-02-27] MEDS: INSULIN ASPART [NOVOLOG] 3 ML PEN SC ×7 (08:34→21:00)
[2018-02-27] MEDS: ASPIRIN (EC) 81 MG TAB PO (08:35)
[2018-02-27] MEDS: LISINOPRIL 5 MG TAB PO (08:36)
[2018-02-27] MEDS: POTASSIUM CHLORIDE (SR) 20 MEQ TAB PO (08:36)
[2018-02-27] MEDS: METOPROLOL (XL) 25 MG TAB PO (08:37)
[2018-02-27] MEDS: INSULIN GLARGINE [LANtus] 3 ML PEN SC (20:01)
[2018-02-27] MEDS: ATORVASTATIN 20 MG TAB PO (21:22)
[2018-02-28] MEDS: ACCU-CHEK XX (01:55)
[2018-02-28] MEDS: CEFOTAXIME IVPB ×3 (05:53→21:46)
[2018-02-28] MEDS: LEVOFLOXACIN 500 MG TAB PO (05:53)
[2018-02-28] MEDS: DEXTROSE 5% IVPB ×3 (05:53→21:46)
[2018-02-28] MEDS: INSULIN ASPART [NOVOLOG] 3 ML PEN SC ×7 (07:51→20:55)
[2018-02-28] MEDS: METOPROLOL (XL) 25 MG TAB PO (09:01)
[2018-02-28] MEDS: ASPIRIN (EC) 81 MG TAB PO (09:01)
[2018-02-28] MEDS: LISINOPRIL 5 MG TAB PO (09:02)
[2018-02-28] MEDS: SOD CHLORIDE 0.9% 1,000 ML IV (11:43)
[2018-02-28] MEDS: INSULIN GLARGINE [LANtus] 3 ML PEN SC (20:05)
[2018-02-28] MEDS: ATORVASTATIN 20 MG TAB PO (20:52)
[2018-03-01] MEDS: ACCU-CHEK XX (02:00)
[2018-03-01] MEDS: CEFOTAXIME IVPB ×2 (05:38→13:00)
[2018-03-01] MEDS: DEXTROSE 5% IVPB ×2 (05:38→13:00)
[2018-03-01] MEDS: LEVOFLOXACIN 500 MG TAB PO (05:39)
[2018-03-01 05:41] LABS: HEMATOCRIT 35.9 % (42.0-52.0); MEAN CORPUSCULAR HEMOGLOBIN 33.9 pg (29.0-33.0); MEAN CORPUSCULAR HGB CONC 33.4 g/dl (32.0-37.0); MEAN CORPUSCULAR VOLUME 101.4 fl (82.0-101.0); MEAN PLATELET VOLUME 10.8 fl (7.4-10.4); PLATELET COUNT 344 10^3/UL (140-415); POSITIVE DIFF @See below; RED BLOOD COUNT 3.54 10^6/ul (4.70-6.10); RED CELL DISTRIBUTION WIDTH 11.8 % (11.5-14.5)
[2018-03-01] MEDS: SOD CHLORIDE 0.9% 1,000 ML IV (05:41)
[2018-03-01 05:44] LABS: ADD MAN DIFF? YES
[2018-03-01 06:07] LABS: ANION GAP 13 (8-16); BLOOD UREA NITROGEN 12 mg/dl (7-20); CALCIUM 8.8 mg/dl (8.4-10.2); CARBON DIOXIDE 32 mmol/L (21-31); CHLORIDE 100 mmol/L (97-110); CREATININE 0.69 mg/dl (0.61-1.24); GLUCOSE 164 mg/dl (70-220); POTASSIUM 4.5 mmol/L (3.5-5.1); SODIUM 140 mmol/L (135-144)
[2018-03-01] MEDS: INSULIN ASPART [NOVOLOG] 3 ML PEN SC ×4 (08:00→12:21)
[2018-03-01] MEDS: METOPROLOL (XL) 25 MG TAB PO (08:01)
[2018-03-01] MEDS: LISINOPRIL 5 MG TAB PO (08:01)
[2018-03-01] MEDS: ASPIRIN (EC) 81 MG TAB PO (08:01)
[2018-03-01 09:30] LABS: BAND NEUTROPHILS #M 0.6 10^3/ul (0.0-0.6); BAND NEUTROPHILS % (M) 9 % (0-4); EOSINOPHILS % (M) 1 % (0-7); GIANT THROMBO% (M) 1 % (0-0); LYMPHOCYTES #M 1.4 10^3/ul (0.8-2.9); LYMPHOCYTES % (M) 21 % (15-51); METAMYELOCYTES %M 1 % (0-0); MONOCYTE #M 0.2 10^3/ul (0.3-0.9); MONOCYTES % (M) 3 % (0-11); PLATELET ESTIMATE NORMAL; REACTIVE LYMPHOCYTES #M 0.2 10^3/ul (0.0-0.0); REACTIVE LYMPHOCYTES% (M) 3 % (0-0); SEG NEUT #M 4.4 10^3/ul (1.6-7.5); SEGMENTED NEUTROPHILS (M) % 62 % (39-77)
== END 2018-03-01 16:10 | disposition home or self-care (01) | DRG 871 ==
LOC: PP2 02-18 09:51 → E/R 14:41 → PP2 19:32
PROC: 0F9130Z Drainage of Right Lobe Liver with Drainage Device, Percutaneous Approach (ICD-10-PCS; principal; 2018-02-23)
DX: A41.89 Other specified sepsis (principal); K75.0 Abscess of liver; E11.10 Type 2 diabetes mellitus with ketoacidosis without coma; E87.2 Acidosis; E87.1 Hypo-osmolality and hyponatremia; E11.65 Type 2 diabetes mellitus with hyperglycemia; E78.5 Hyperlipidemia, unspecified; F10.99 Alcohol use, unspecified with unspecified alcohol-induced disorder; F10.10 Alcohol abuse, uncomplicated; I25.10 Atherosclerotic heart disease of native coronary artery without angina pectoris; B96.1 Klebsiella pneumoniae [K. pneumoniae] as the cause of diseases classified elsewhere; D64.9 Anemia, unspecified; Z79.4 Long term (current) use of insulin; Z95.1 Presence of aortocoronary bypass graft
CPT/HCPCS: 36415; 36589; 71045; 74176; 74177; 75989; 76705; 77012; 80048; 80053; 80061; 80306; 80307; 81001; 82043; 82105; 82607; 82746; 82962; 83036; 83605; 83735; 84436; 84479; 84484; 85014; 85018; 85025; 85610; 85651; 85730; 86140; 86704; 86706; 86803; 87040; 87070; 87075; 87086; 87340; 93005; 96372; 96374; 99285-25

== ENCOUNTER 2018-04-21 22:14 | Emergency (ER) | payer MEDICARE, OTHER ==
[2018-04-21 23:51] LABS: ADD MAN DIFF? NO
[2018-04-21 23:53] LABS: WHITE BLOOD COUNT 6.1 10^3/ul (4.8-10.8)
[2018-04-21 23:53] LABS: BASOPHILS % 0.5 % (0.0-2.0); EOSINOPHILS # 0.2 10^3/ul (0.0-0.5); EOSINOPHILS % 3.5 % (0.0-7.0); HEMOGLOBIN 11.8 g/dl (14.0-18.0); LYMPHOCYTES # 1.9 10^3/ul (0.8-2.9); LYMPHOCYTES % 30.5 % (15.0-51.0); MEAN CORPUSCULAR HGB CONC 33.7 g/dl (32.0-37.0); MEAN CORPUSCULAR VOLUME 100.9 fl (82.0-101.0); MEAN PLATELET VOLUME 10.9 fl (7.4-10.4); MONOCYTE # 0.6 10^3/ul (0.3-0.9); MONOCYTES % 9.2 % (0.0-11.0); NEUTROPHIL # 3.4 10^3/ul (1.6-7.5); PLATELET COUNT 201 10^3/UL (140-415); RED BLOOD COUNT 3.47 10^6/ul (4.70-6.10); RED CELL DISTRIBUTION WIDTH 12.4 % (11.5-14.5)
[2018-04-22 00:32] LABS: TROPONIN-I < 0.010 ng/ml (0.000-0.120)
[2018-04-22 00:35] LABS: PROTIME 13.3 Sec (11.9-14.9)
[2018-04-22 00:36] LABS: PARTIAL THROMBOPLASTIN TIME 29.7 Sec (25.0-35.0)
[2018-04-22 00:39] LABS: ANION GAP 17 (8-16); BLOOD UREA NITROGEN 13 mg/dl (7-20); CALCIUM 8.8 mg/dl (8.4-10.2); CARBON DIOXIDE 26 mmol/L (21-31); CHLORIDE 100 mmol/L (97-110); CREATININE 0.76 mg/dl (0.61-1.24); GLUCOSE 319 mg/dl (70-220); POTASSIUM 4.8 mmol/L (3.5-5.1); SODIUM 138 mmol/L (135-144)
[2018-04-22] MEDS: IOHEXOL 300MG/ML 150 ML BTL (01:12)
[2018-04-22] MEDS: SOD CHLORIDE 0.9% 100 ML (01:12)
[2018-04-22 06:08] LABS: CREATINE KINASE 54 IU/L (23-200)
[2018-04-22 06:16] LABS: CK INDEX 2.7
[2018-04-22 06:20] LABS: CK-MB 1.46 ng/ml (0.0-2.4); TROPONIN-I < 0.012 ng/ml (0.000-0.120)
== END 2018-04-22 05:45 | disposition home or self-care (01) ==
LOC: E/R 22:14
DX: M25.512 Pain in left shoulder (principal); E11.65 Type 2 diabetes mellitus with hyperglycemia; D64.9 Anemia, unspecified; I10 Essential (primary) hypertension; R07.9 Chest pain, unspecified; Z79.4 Long term (current) use of insulin; Z79.82 Long term (current) use of aspirin; Z87.891 Personal history of nicotine dependence; Z95.1 Presence of aortocoronary bypass graft
CPT/HCPCS: 36415; 71045; 71275; 73030; 80048; 82550; 82553; 82962; 84484; 85025; 85610; 85730; 93005; 99285-25